=== PATIENT | male | born 1965 | race Caucasian/White ===

== ENCOUNTER 2017-06-23 14:58 | Emergency (ER) | payer OTHER ==
[~2017-06-23] VITALS: Ht 167.6 cm; Wt 84.7 kg
[~2017-06-23 14:58] MED LIST: ALPRAZOLAM0.5 MG PO; ASPIR-LOW81 MG PO; ATORVASTATIN CA40 MG PO; BRILINTA90 MG PO; CITALOPRAM HBR40 M1 PO; CLONAZEPAM0.5 MG PO; DEPAKOTE500 MG PO; DIAZEPAM5 MG PO; DIVALPROEX SOD500 MG PO; GABAPENTIN600 MG PO; Klonopin PO; LIDODERM 5% P1 PATCH TD; LISINOPRIL2.5 MG PO; LOPRESSOR25 MG PO; MOBIC15 MG PO; MORPHINE SULFAT15 M1 PO; MOTRIN600 MG PO; Milk Of Magnesia,MOM PO; NEXIUM20 MG PO; NICOTINE PATCH1 EAC2 TD; NOHOMEMEDS; OXYCODONE-APAP1 EACH PO; OxyCODONE PO; PHENERGAN12.5 M1 PO; PLAVIX75 MG PO; PRINIVIL10 MG PO; Proventil,Ventolin H IH; QUETIAPINE FUMA25 MG PO; SENOKOT S,PE1 TABLET PO; Senokot,Sennagen PO; TOPAMAX50 MG PO; TRAZODONE HCL100 MG PO; [UNRECOGNIZED DRUG - OTHER]
[2017-06-23 15:18] LABS: BASOPHIL (%) 0.6 % (0-1); EOSINOPHIL (%) 6.8 % (0-5); EOSINOPHIL COUNT 0.5 K/uL (0-0.3); HEMATOCRIT 38.7 % (38.0-50.0); HEMOGLOBIN 13.7 G/DL (12.5-16.6); IMMATURE GRANULOCYTE (%) 0.3 % (0.0-0.7); LYMPHOCYTE (%) 27.4 % (15-42); LYMPHOCYTE COUNT 1.9 K/uL (1.0-2.8); MCH 32.5 PG (29.0-34.0); MCHC 35.4 G/DL (30.0-36.0); MCV 91.7 FL (86-99); MONOCYTE (%) 8.8 % (3-12); MONOCYTE COUNT 0.6 K/uL (0-0.8); NEUTROPHIL (%) 56.1 % (45-76); NEUTROPHIL COUNT 3.9 K/uL (1.8-6.4); PLATELET COUNT 251 K/uL (156-360); RBC DIS.WIDTH-CV 12.1 % (11.8-14.6); RBC DIS.WIDTH-SD 40.9 % (39-53); RED BLOOD COUNT 4.22 M/uL (4.00-5.50); WHITE BLOOD COUNT 6.9 K/uL (4.1-10.2)
[2017-06-23 15:30] LABS: ALBUMIN 3.7 g/dL (3.2-4.8); CHLORIDE 102 mEq/L (99-109); POTASSIUM 4.4 mEq/L (3.7-5.4); SODIUM 137 mEq/L (136-147)
[2017-06-23 15:32] LABS: GLUCOSE 113 mg/dL (70-99); TOTAL PROTEIN 6.3 g/dL (6.4-8.3)
[2017-06-23 15:34] LABS: TOTAL BILIRUBIN 0.2 mg/dL (0.0-1.0)
[2017-06-23 15:35] LABS: SERUM ETHYL ALCOHOL < 10 mg/dL
[2017-06-23 15:36] LABS: ALKALINE PHOSPHATASE 75 IU/L (3-129); CREATININE 0.7 mg/dL (0.6-1.3); GFR ESTIMATE (CALCULATED) > 59 mL/min/ (58.99-99999)
[2017-06-23 15:37] LABS: AST (GOT) 13 IU/L (2-34)
[2017-06-23 15:38] LABS: UREA NITROGEN (BUN) 10 mg/dL (9-23)
[2017-06-23 15:39] LABS: SALICYLATE < 5.0 MG/DL (15-30)
[2017-06-23 15:40] LABS: ACETAMINOPHEN (TYLENOL) < 10 mcg/mL (10-30); ALT (GPT) 11 IU/L (3-49)
[2017-06-23 16:08] LABS: TROP-I INTERPRETATION NEGATIVE; TROPONIN-I < 0.01 ng/mL (0.0-0.30)
[2017-06-23 16:44] LABS: VALPROIC ACID (DEPAKOTE) 12.6 MCG/ML (50-100)
[2017-06-23 16:54] LABS: MAGNESIUM 2.2 mg/dl (1.3-2.7)
[2017-06-23 19:52] LABS: AMPHETAMINE NEGATIVE (500 ng/mL); BARBITURATES NEGATIVE (200 ng/mL); BENZODIAZEPINES PRESUMPTIVE POSITIVE (150 ng/mL); BUPRENORPHINE NEGATIVE (10 ng/mL); COCAINE PRESUMPTIVE POSITIVE (150 ng/mL); METHADONE NEGATIVE (200 ng/mL); METHAMPHETAMINE NEGATIVE (500 ng/mL); OPIATES (MORPHINE) NEGATIVE (100 ng/mL); OXYCODONE PRESUMPTIVE POSITIVE (100 ng/mL); PHENCYCLIDINE NEGATIVE (25 ng/mL); PROPOXYPHENE NEGATIVE (300 ng/mL); THC CANNABINOIDS NEGATIVE (50 ng/mL); TRICYCLIC ANTIDEPRESSANTS NEGATIVE (300 ng/mL)
[2017-06-23] MEDS ORDERED: DEPAKOTE500 MG PO (19:53)
[2017-06-23] MEDS ORDERED: ATIVAN2 MG PO (19:54)
[2017-06-23 20:45] LABS: BENZODIAZEPINES, URINE SCREEN POSITIVE (200 ng/mL)
[2017-06-23 21:18] VITALS: BP 98/52
== END 2017-06-23 21:24 | disposition home or self-care (01) ==
LOC: EME 14:58
PROVIDERS: Emergency Medicine
DX: F32.9 Major depressive disorder, single episode, unspecified (principal); G40.909 Epilepsy, unspecified, not intractable, without status epilepticus; T42.6X6A Underdosing of other antiepileptic and sedative-hypnotic drugs, initial encounter; Z91.14 Patient's other noncompliance with medication regimen; Z04.6 Encounter for general psychiatric examination, requested by authority; I25.2 Old myocardial infarction; F17.200 Nicotine dependence, unspecified, uncomplicated; K21.9 Gastro-esophageal reflux disease without esophagitis; F41.9 Anxiety disorder, unspecified; Z86.73 Personal history of transient ischemic attack (TIA), and cerebral infarction without residual deficits; B19.20 Unspecified viral hepatitis C without hepatic coma; Z95.5 Presence of coronary angioplasty implant and graft; Z79.02 Long term (current) use of antithrombotics/antiplatelets
CPT/HCPCS: 71045; 71046; 80053; 80164; 83735; 84484; 84999; 85025; 90839; 93005; 94640; 99281; 99285; G0480

== ENCOUNTER 2017-09-04 03:15 | Observation (INO) | payer OTHER ==
[~2017-09-04] VITALS: Ht 172.7 cm; Wt 77.3 kg
[~2017-09-04 03:15] MED LIST changes: +ATIVAN2 MG PO
[2017-09-04 03:37] LABS: HEMATOCRIT 42.2 % (38.0-50.0); HEMOGLOBIN 14.6 G/DL (12.5-16.6); MCH 32.4 PG (29.0-34.0); MCHC 34.6 G/DL (30.0-36.0); MCV 93.6 FL (86-99); PLATELET COUNT 197 K/uL (156-360); RBC DIS.WIDTH-CV 12.6 % (11.8-14.6); RBC DIS.WIDTH-SD 43.3 % (39-53); RED BLOOD COUNT 4.51 M/uL (4.00-5.50); WHITE BLOOD COUNT 9.7 K/uL (4.1-10.2)
[2017-09-04 03:49] LABS: CHLORIDE 104 mEq/L (99-109); POTASSIUM 4.1 mEq/L (3.7-5.4); SODIUM 137 mEq/L (136-147)
[2017-09-04 03:51] LABS: GLUCOSE 81 mg/dL (70-99)
[2017-09-04 03:55] LABS: CREATININE 0.8 mg/dL (0.6-1.3); GFR ESTIMATE (CALCULATED) > 59 mL/min/ (58.99-99999)
[2017-09-04 03:56] LABS: UREA NITROGEN (BUN) 6 mg/dL (9-23)
[2017-09-04 03:59] LABS: TROP-I INTERPRETATION NEGATIVE; TROPONIN-I 0.02 ng/mL (0.0-0.30)
[2017-09-04 04:06] LABS: ALBUMIN 3.9 g/dL (3.2-4.8)
[2017-09-04 04:09] LABS: TOTAL PROTEIN 6.8 g/dL (6.4-8.3)
[2017-09-04 04:10] LABS: TOTAL BILIRUBIN 0.4 mg/dL (0.0-1.0)
[2017-09-04 04:11] LABS: ALKALINE PHOSPHATASE 72 IU/L (3-129); SERUM ETHYL ALCOHOL < 10 mg/dL
[2017-09-04 04:14] LABS: AST (GOT) 15 IU/L (2-34); DIRECT BILIRUBIN 0.2 mg/dL (0.0-0.3)
[2017-09-04 04:15] LABS: ALT (GPT) 9 IU/L (3-49); LIPASE 11 U/L (1.0-51.0)
[2017-09-04] MEDS ORDERED: RISPERDAL0.5 MG PO (06:10)
[2017-09-04] MEDS ORDERED: ENDOCET 7.5-321 EACH PO (06:17)
[2017-09-04 07:38] VITALS: BP 115/56
[2017-09-04] MEDS ORDERED: AZITHROMYCIN500 M1 PO (11:34)
[2017-09-04] MEDS ORDERED: BRILINTA90 MG PO (11:35)
[2017-09-04] MEDS ORDERED: BENZONATATE100 MG PO (11:36)
[2017-09-04] MEDS ORDERED: PROAIR RESPICL90 MCG IH (11:37)
[2017-09-04 13:14] LABS: TROP-I INTERPRETATION NEGATIVE; TROPONIN-I < 0.01 ng/mL (0.0-0.30)
== END 2017-09-04 12:52 | disposition left against medical advice (07) ==
LOC: EME 03:15 → EDOF 06:04 → ENRESERV 06:06 → 5WEST 07:08
PROVIDERS: Internal Medicine
DX: R07.89 Other chest pain (principal); I25.10 Atherosclerotic heart disease of native coronary artery without angina pectoris; I25.2 Old myocardial infarction; Z95.5 Presence of coronary angioplasty implant and graft; I25.5 Ischemic cardiomyopathy; M79.601 Pain in right arm; J20.9 Acute bronchitis, unspecified; B19.20 Unspecified viral hepatitis C without hepatic coma; F17.210 Nicotine dependence, cigarettes, uncomplicated; G40.909 Epilepsy, unspecified, not intractable, without status epilepticus; K21.9 Gastro-esophageal reflux disease without esophagitis; E78.2 Mixed hyperlipidemia; G89.29 Other chronic pain; F11.20 Opioid dependence, uncomplicated; F32.9 Major depressive disorder, single episode, unspecified; F12.90 Cannabis use, unspecified, uncomplicated; Z83.3 Family history of diabetes mellitus; Z82.49 Family history of ischemic heart disease and other diseases of the circulatory system; Z82.3 Family history of stroke; Z80.3 Family history of malignant neoplasm of breast; Z79.82 Long term (current) use of aspirin
CPT/HCPCS: 71046; 71275; 80048; 80076; 83690; 84484; 85027; 93005; 93971; 94640; 99281; 99285; G0378; G0480; J7030